=== PATIENT | female | born 1985 | race Caucasian/White ===

== ENCOUNTER 2016-03-22 15:50 | Emergency (ER) | payer OTHER ==
[~2016-03-22] VITALS: Ht 162.6 cm; Wt 64.4 kg
[~2016-03-22 15:50] MED LIST: CLINDAMYCIN HC300 MG PO; TYLENOL EXTRA500 MG; ULTRAM50 MG PO
[2016-03-22] MEDS ORDERED: ULTRACET1 TABLET PO (17:31)
[2016-03-22] MEDS ORDERED: MOTRIN800 MG PO (17:31)
[2016-03-22 17:45] VITALS: BP 112/73
== END 2016-03-22 17:57 | disposition home or self-care (01) ==
LOC: EME 15:50
DX: M23.51 Chronic instability of knee, right knee (principal); M23.91 Unspecified internal derangement of right knee; X50.9XXA Other and unspecified overexertion or strenuous movements or postures, initial encounter
CPT/HCPCS: 73564; 99281; 99284

== ENCOUNTER 2017-01-30 08:26 | Outpatient (CLI) | payer OTHER ==
[~2017-01-30 08:26] MED LIST changes: +MOTRIN800 MG PO; +ULTRACET1 TABLET PO
[2017-01-30 08:43] VITALS: BP 120/81
[2017-01-30] MEDS ORDERED: EXPECTA PRENAT1 EACH PO (16:21)
[2017-01-30] MEDS ORDERED: IBUPROFEN800 MG PO (18:41)
== END 2017-01-30 09:50 | disposition home or self-care (01) ==
LOC: LDRP-OP 08:26 → 2WEST 08:27 → LDRP-OP 03-08 08:18
DX: O47.03 False labor before 37 completed weeks of gestation, third trimester (principal); Z3A.39 39 weeks gestation of pregnancy
CPT/HCPCS: 59025; G0378

== ENCOUNTER 2017-01-30 15:34 | Inpatient (IN) | payer OTHER ==
[2017-01-30] VITALS (10 sets, daily range): BP systolic 119–154; BP diastolic 56–83
[~2017-01-30] VITALS: Ht 162.6 cm; Wt 80.0 kg
[2017-01-30] MEDS ORDERED: EXPECTA PRENAT1 EACH PO (16:21)
[2017-01-30 16:48] LABS: BASOPHIL (%) 0.4 % (0-1); BASOPHIL COUNT 0.1 K/uL (0-0.1); EOSINOPHIL (%) 0.5 % (0-5); EOSINOPHIL COUNT 0.1 K/uL (0-0.3); HEMATOCRIT 36.9 % (36.0-46.0); HEMOGLOBIN 12.5 G/DL (11.9-15.5); IMMATURE GRANULOCYTE (%) 0.8 % (0.0-0.7); LYMPHOCYTE (%) 11.8 % (15-42); LYMPHOCYTE COUNT 1.6 K/uL (1.0-2.8); MCH 31.7 PG (29.0-34.0); MCHC 33.9 G/DL (30.0-36.0); MCV 93.7 FL (83-99); MONOCYTE (%) 6.8 % (3-12); MONOCYTE COUNT 0.9 K/uL (0-0.8); NEUTROPHIL (%) 79.7 % (45-76); NEUTROPHIL COUNT 11.1 K/uL (1.8-6.4); PLATELET COUNT 181 K/uL (156-360); RBC DIS.WIDTH-CV 12.9 % (11.8-14.6); RBC DIS.WIDTH-SD 44.5 % (39-53); RED BLOOD COUNT 3.94 M/uL (3.80-5.20); WHITE BLOOD COUNT 13.9 K/uL (4.1-10.2)
[2017-01-30] MEDS ORDERED: IBUPROFEN800 MG PO (18:41)
== END 2017-02-01 11:15 | disposition home or self-care (01) | DRG 775 ==
LOC: LDRP-OP 15:34 → 2WEST 15:36 → LDRP-OP 03-08 10:02
PROVIDERS: Midwife
PROC: 10E0XZZ Delivery of Products of Conception, External Approach (ICD-10-PCS; principal; 2017-01-30)
PROC: 10907ZC Drainage of Amniotic Fluid, Therapeutic from Products of Conception, Via Natural or Artificial Opening (ICD-10-PCS; principal; 2017-01-30)
DX: O69.81X0 Labor and delivery complicated by cord around neck, without compression, not applicable or unspecified (principal); Z3A.39 39 weeks gestation of pregnancy; Z37.0 Single live birth
CPT/HCPCS: 59025; 85025; G0378